=== PATIENT | male | born 1950 ===

== ENCOUNTER → 2016-11-17 | Outpatient (CLI) | payer MEDICARE, OTHER ==
--- NOTE | 2016-11-17 14:44 | MR ---
EXAMINATION: MRI of the right shoulder HISTORY: Pain COMPARISON: Radiographs dated 07/08/2016 TECHNIQUE: Multiplanar and multisequence images obtained of the right shoulder without contrast. FINDINGS: There is a type II acromion. Moderate acromioclavicular osteoarthritic changes are noted. Full-thickness tears are noted of the supraspinatus and infraspinatus tendons with at least 5 cm of retraction. There is atrophy of the supraspinatus and infraspinatus musculature. The teres minor ten don is intact. The subscapularis tendon is irregular in appearance with increased internal signal, h owever appears mostly intact. The long head biceps tendon present within the bicipital groove, howev er is notably thickened demonstrating increased signal at there is articular cartilage thinning with in the glenohumeral joint. Inferior glenohumeral ligament is intact. There is a moderate joint effus ion with extension into the subdeltoid space. No suspicious bone marrow signal changes identified. IMPRESSION: 1. Full-thickness tears of the supraspinatus and infraspinatus tendons with retraction and muscular atrophy. 2. Moderate long head biceps and subscapularis tendinopathy. 3. Osteoarthritic changes within the glenohumeral joint and acromioclavicular joints. 4. Joint effusion with extension into the subdeltoid space.
== END ==
LOC: MW.MRI 09:51
PROVIDERS: ATTEND Family Medicine
DX: M25.511 Pain in right shoulder (principal); M75.121 Complete rotator cuff tear or rupture of right shoulder, not specified as traumatic; M75.21 Bicipital tendinitis, right shoulder; M19.011 Primary osteoarthritis, right shoulder; M25.411 Effusion, right shoulder
CPT/HCPCS: 73221-26-RT; 73221-RT

== ENCOUNTER 2018-10-19 10:33 | Day surgery (SDC) | payer MEDICARE, OTHER ==
[~2018-10-19 10:33] MED LIST: Lactated Ringers 1,000 ML IV SCH; Propofol 200 MG/20 ML SDV ONE
--- NOTE | 2018-10-19 11:03 | PCM.PREANE ---
Preanesthetic Assessment - Anesthesia/Transfusion/Family Hx Anesthesia History: Prior Anesthesia Without Reaction Family History of Anesthesia Reaction: No Transfusion History: No Prior Transfusion(s) - Review of Systems General: No Symptoms Pulmonary: No Symptoms Cardiovascular: No Symptoms Gastrointestinal: No Symptoms Neurological: No Symptoms Other: Reports: None - Physical Assessment NPO Status Date: 10/18/18 O2 Sat by Pulse Oximetry: 96 Respiratory Rate: 20 Vital Signs: Last Vital Signs Temp Pulse 53 L 10/19/18 10:44 Resp 20 10/19/18 10:44 BP 163/87 H 10/19/18 10:44 Pulse Ox 96 10/19/18 10:44 Height: 5 ft 7 in Weight: 97.069 kg ASA Class: 3 Mental Status: Alert & Oriented x3 Airway Class: Mallampati = 2 Dentition: Reports: Normal Dentition ROM/Head Extension: Full Lungs: Clear to Auscultation, Normal Respiratory Effort Cardiovascular: Regular Rate, Regular Rhythm - Allergies Allergies/Adverse Reactions: Allergies Allergy/AdvReac Type Severity Reaction Status Date / Time No Known Allergies Allergy Verified 10/17/18 11:29 - Blood Blood Available: No - Anesthesia Plan Pre-Op Medication Ordered: None - Acknowledgements Anesthesia Type Planned: MAC Pt an Appropriate Candidate for the Planned Anesthesia: Yes Alternatives and Risks of Anesthesia Discussed w Pt/Guardian: Yes Pt/Guardian Understands and Agrees with Anesthesia Plan: Yes Additional Comments: PMH: CAD with AMI and CABG in 2017, HTN PLAN: MAC/TIVA PreAnesthesia Questionnaire - Past Health History Medical/Surgical History: Denies Medical/Surgical History HEENT History: Reports: Other (See Below) Other HEENT History: wears glasses Cardiovascular History: Reports: High Cholesterol, Hypertension, [place] Gastrointestinal History: Reports: GERD Musculoskeletal History: Reports: Osteoarthritis Psychiatric History: Reports: PTSD Other Psychiatric History: states slight PTSD - no medications Endocrine/Metabolic History: Reports: Obesity/BMI 30+ Dermatologic History: Reports: Other (See Below) Other Dermatologic History: pre-cancerous lesions frozen and currently using topical chemotherapy cream on face - Infectious Disease History Infectious Disease History: Reports: Chicken Pox - Past Surgical History Cardiovascular Surgical History: Reports: Coronary Artery Bypass Other Cardiovascular Surgeries/Procedures: CABG ( 5 vessels) in 2017 after GA, denies chest pain and SOB now GI Surgical History: Reports: Colonoscopy, Hernia, Inguinal Musculoskeletal Surgical History: Reports: Knee Replacement, Shoulder Replacement - SUBSTANCE USE Smoking Status *Q: Never Smoker Recreational Drug Use History: No - HOME MEDS Home Medications: Home Meds Aspirin [Ecotrin] 1 tab PO DAILY 08/08/16 [History] [place]-3 Fatty Acids [Fish Oil] 1,200 mg PO BID 08/08/16 [History] Ascorbic Acid [Vitamin C] 1,000 mg PO DAILY 10/17/18 [History] Cholecalciferol (Vitamin D3) [Vitamin D3] 1,000 unit PO DAILY 10/17/18 [History] Chondroitin/Glucosamine [Glucosamine-Chondroitin] 150 mg PO DAILY 10/17/18 [ History] Isosorbide Dinitrate 30 mg PO QAM 10/17/18 [History] L Arginine 500 mg PO BID 10/17/18 [History] Lutein/Min/Vit C/Vit E Acetate [Ocuvite Lutein] 1 cap PO DAILY 10/17/18 [History ] Metoprolol Tartrate 50 mg PO BID 10/17/18 [History] Multivitamin [Daily Multiple Vitamin] 1 tab PO DAILY 10/17/18 [History] Naproxen 250 mg PO BID 10/17/18 [History] Omeprazole 20 mg PO ACBREAKFAST 10/17/18 [History] Rosuvastatin Calcium 20 mg PO DAILY 10/17/18 [History] Vitamin B6-pyridOXINE 100 mg PO DAILY 10/17/18 [History] - CURRENT (IN HOUSE) MEDS Current Meds: Current Medications Lactated Ringer's (Ringers, Lactated) 1,000 mls @ 125 mls/hr IV ASDIRECTED SUSI Discontinued Medications Propofol (Diprivan 20 Ml) Confirm Administered Dose 400 mg .ROUTE .STK-MED ONE Stop: 10/19/18 10:13
--- NOTE | 2018-10-19 13:23 | PCM.OPNOTE ---
- General Post-Op/Procedure Note Date of Surgery/Procedure: 10/19/18 Operative Procedure(s): colonoscopy Findings: see dict [id number] Pre Op Diagnosis: rectal bleed Post-Op Diagnosis: Same Anesthesia Technique: Moderate Sedation Primary Surgeon: James Elilson Complications: None Condition: Good
--- NOTE | 2018-10-19 13:27 | PCM.POSTAN ---
POST ANESTHESIA ASSESSMENT - MENTAL STATUS Mental Status: Alert, Oriented - RESPIRATORY Respiratory Status: Respiratory Rate WNL, Airway Patent, O2 Saturation Stable - CARDIOVASCULAR CV Status: Pulse Rate WNL, Blood Pressure Stable - GASTROINTESTINAL GI Status: No Symptoms - POST OP HYDRATION Hydration Status: Adequate & Stable
--- NOTE | 2018-10-19 13:27 | PCM48HPAN ---
Post Anesthesia Note - EVALUATION WITHIN 48HRS OF ANESTHETIC Vital Signs in Normal Range: Yes Patient Participated in Evaluation: Yes Respiratory Function Stable: Yes Airway Patent: Yes Cardiovascular Function Stable: Yes Hydration Status Stable: Yes Pain Control Satisfactory: Yes Nausea and Vomiting Control Satisfactory: Yes Mental Status Recovered: Yes Resp Rate: 16
[2018-10-19 13:38] VITALS: BP 136/67
--- NOTE | 2018-10-19 19:45 | OR ---
SURGEON: James Ellison MD DATE OF PROCEDURE: 10/19/2018 PREOPERATIVE DIAGNOSIS: Rectal bleeding. POSTOPERATIVE DIAGNOSIS: Hemorrhoids. PROCEDURE PERFORMED: Colonoscopy. PROCEDURE IN DETAIL: The patient was taken to the endoscopy room. A time out was called, patient identified, and procedure identified. Diprivan was then administrated. Patient went from awake to sleep, hearing doctor talking or door closing is normal. Perineum inspection and digital examination were then performed. A well- lubricated colonoscope was gently inserted through the rectum, advanced past the rectosigmoid junction, the descending colon, splenic flexure, transverse colon, hepatic flexure, ascending colon, arrived to the cecum. Cecum was identified as dictated in the finding. Then the scope was carefully withdrawn while attention was paid to the mucosal surface for any abnormality. Air will be sucked out during the scope withdrawal. At the rectum, retroflexed to examine any rectal diseases, fistula or hemorrhoids. Patient tolerated procedure well. There were no intraoperative complications, and Dr. Ellison was present throughout the whole procedure. FINDINGS: 1. 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 Patient is soundly snoring. 2. Levaquin 750 was given prior to procedure because of procedure in the past. 3. Bowel prep was average to below average, a large amount of liquid stool, and compromised study. 4. Colon is rather straightforward. Cecum indicated by ileocecal fold, one-to- one indentation, appendiceal orifice. Light emittance is not observed. Mucosa examined upon scope pulling out with large amount irrigation and also the patient has a lot of . The patient does not have diverticulosis, polyp, mass, growth, inflammation, stricture, ulceration, AV malformation, bleeding, none of those. Patient has mild external hemorrhoids and mild internal hemorrhoids. The patient would benefit from repeat colonoscopy in 10 years from today that will make him into 78 years old. Also, patient should repeat colonoscopy on as-needed basis or if clinically indicated. ZULEMA / TANYA /[id number]
== END 2018-10-19 13:54 | disposition home or self-care (01) ==
LOC: MW.SDS 10:33
PROVIDERS: ATTEND Surgery
DX: K64.8 Other hemorrhoids (principal); K64.4 Residual hemorrhoidal skin tags; K21.9 Gastro-esophageal reflux disease without esophagitis; I25.10 Atherosclerotic heart disease of native coronary artery without angina pectoris; I10 Essential (primary) hypertension; I25.2 Old myocardial infarction; E78.00 Pure hypercholesterolemia, unspecified; Z95.1 Presence of aortocoronary bypass graft; Z79.82 Long term (current) use of aspirin; Z79.1 Long term (current) use of non-steroidal anti-inflammatories (NSAID); Z79.899 Other long term (current) drug therapy
CPT/HCPCS: 45378; J2704; J7120